=== PATIENT | male | born 1985 | race African-American/Black ===

== ENCOUNTER 2018-04-22 01:21 | Emergency (ER) | payer MEDICARE, OTHER ==
--- NOTE | 2018-04-22 01:38 | PDOC ---
History of Present Illness - General Stated Complaint: PAIN Time Seen by Provider: 04/22/18 01:37 - History of Present Illness Initial Comments: 32 year old male with PMH of substance abuse (meth, cocaine, and EtOH) presenting with "I want to get by diabetes checked". Of note, melecio was very easily agitated regardless of demeanor of the provider and when it was found out that he was never formally diagnosed with diabetes, he states " I know my body! Give me insulin!". He tended to continue this type of behavior, continuously using profanity at his providers. Denied any fevers, chills, nausea , vomiting, chest pain, weakness, or other symptoms. His FS by EMS was 95. He was noticed to be sleeping comfortably each time this provider cameby the bed to interview him. 04/22/18 03:40 Past History - Past Medical History Allergies/Adverse Reactions: Allergies Allergy/AdvReac Type Severity Reaction Status Date / Time No Known Allergies Allergy Verified 04/22/18 02:11 Home Medications: Ambulatory Orders NK [No Known Home Medication] 08/02/14 Anemia: No Asthma: No Cancer: No Cardiac Disorders: No CVA: No COPD: No CHF: No Dementia: No Diabetes: No GI Disorders: No Disorders: No HTN: Yes (off meds) Hypercholesterolemia: Yes (off meds) Kidney Stones: No Liver Disease: No Seizures: No Thyroid Disease: No - Surgical History Abdominal Surgery: No Appendectomy: No Cardiac Surgery: No Cholecystectomy: No Lung Surgery: No Neurologic Surgery: No Orthopedic Surgery: No - Reproductive History Testicular Surgery: No - Suicide/Smoking/Psychosocial Hx Smoking History: Current every day smoker Have you smoked in the past 12 months: Yes Number of Cigarettes Smoked Daily: 20 'Breaking Loose' booklet given: 02/09/15 Hx Alcohol Use: Yes (once a week) Drug/Substance Use Hx: Yes (PCP started at ge of 18, daily use for $20) Substance Use Type: Cocaine (1 gm a day) Hx Substance Use Treatment: Yes Review of Systems - Review of Systems Constitutional: No: See HPI, Chills, Diaphoresis HEENTM: No: Eye Pain, Blurred Vision, Tearing Respiratory: No: Cough, Orthopnea, Shortness of Breath Cardiac (ROS): No: Chest Pain, Edema, Irregular Heart Rate ABD/GI: No: Diarrhea, Nausea, Vomiting : No: Burning, Dysuria, Discharge Integumentary: No: Bruising, Change in Color, Erythema Neurological: No: Headache, Numbness, Paresthesia Psychiatric: No: Anxiety, Stressors, Sleep Pattern Change Endocrine: No: Excessive Sweating, Flushing Hematologic/Lymphatic: No: Anemia, Blood Clots, Easy Bleeding *Physical Exam - Physical Exam General Appearance: Yes: Nourished, Appropriately Dressed. No: Apparent Distress HEENT: positive: EOMI, ANDREW, Normal ENT Inspection, Normal Voice Neck: positive: Trachea midline, Normal Thyroid, Supple. negative: Tender, Rigid Respiratory/Chest: positive: Lungs Clear, Normal Breath Sounds. negative: Chest Tender, Respiratory Distress Cardiovascular: positive: Regular Rhythm, Regular Rate Gastrointestinal/Abdominal: positive: Normal Bowel Sounds, Flat, Soft. negative : Tender Lymphatic: negative: Adenopathy, Tenderness Musculoskeletal: positive: Normal Inspection. negative: Decreased Range of Motion Extremity: positive: Normal Capillary Refill, Normal Inspection, Normal Range of Motion. negative: Tender Integumentary: positive: Normal Color, Dry, Warm Neurologic: positive: Fully Oriented, Alert, Normal Mood/Affect, Normal Response , Motor Strength 5/5 Medical Decision Making - Medical Decision Making 32 year old male with extensive history of substance abuse presenting with a need "to check my diabetes". Fingersticks remained in the 90s x3 in EMS and our facility. Denies any symptoms that corroborate diabetes or pre-diabetes. Patient had stable vitals and was ambulatory to the bathroom multiple times. Discharged with return precautions and and follow up instructions. 04/24/18 08:08 *DC/Admit/Observation/Transfer Diagnosis at time of Disposition: Normal blood sugar - Discharge Dispostion Disposition: HOME Condition at time of disposition: Improved Decision to Admit order: No - Referrals Referrals: Tobin Davidson [Primary Care Provider] - - Patient Instructions Printed Discharge Instructions: How to Avoid a Cold or Flu Additional Instructions: You came to use to check your blood sugar because you have family history of diabetes. Both of your blood sugar readings were normal. You do not have diabetes likely. Please follow up with your primary care physician. If you have any other concerning symptoms, please return to our ED. - Post Discharge Activity
--- NOTE | 2018-04-22 01:40 | PDOC ---
Attending Attestation - Resident Resident Name: Alex Walters - ED Attending Attestation I have performed the following: I have examined & evaluated the patient, The case was reviewed & discussed with the resident, I agree w/resident's findings & plan - HPI HPI: 04/22/18 02:39 32-year-old male arrives by ambulance requesting his blood sugar be checked. - Physicial Exam PE: 04/22/18 02:40 Agree with resident's physical exam - Medical Decision Making 04/22/18 02:41 32-year-old male requesting blood sugar checked Fingerstick is 77 Patient will be discharged and has been advised to follow-up with his regular physician I
[2018-04-22 02:11] VITALS: BP 133/83; PULSE 89; TEMP 98.1; BMI 26.7
[2018-04-22] MEDS ORDERED: HEMOQUE CONTROL SOLUTION ONE (02:34)
== END 2018-04-22 04:28 | disposition home or self-care (01) ==
LOC: JER 01:21
DX: Z13.1 Encounter for screening for diabetes mellitus (principal); Z83.3 Family history of diabetes mellitus; I10 Essential (primary) hypertension; E78.00 Pure hypercholesterolemia, unspecified
CPT/HCPCS: 82962; 99281-25

== ENCOUNTER 2019-06-12 20:57 | Emergency (ER) | payer OTHER ==
[2019-06-12 21:10] VITALS: BMI 29.8
[2019-06-12] MEDS ORDERED: IBUPROFEN 600 MG TABLET (FP) PO ONE (23:34)
[2019-06-12] MEDS ORDERED: ACETAMINOPHEN 500 MG TABLET (FP) PO ONE (23:34)
[2019-06-12] MEDS ORDERED: LIDOCAINE VISCOUS 2% ORAL/TOP 20 ML UNIT-DOSE CUP PO ONE (23:52)
--- NOTE | 2019-06-12 23:52 | PDOC ---
History of Present Illness - General Chief Complaint: Respiratory Stated Complaint: FLU SYX Time Seen by Provider: 06/12/19 22:39 History Source: Patient Exam Limitations: No Limitations - History of Present Illness Initial Comments: 06/12/19 23:46 HISTORY OF PRESENT ILLNESS: 33-year-old male denies medical history presents emergency department for evaluation of cough and oral sores for the past 4 days. Patient reports has been to multiple emergency departments for evaluation and is concerned because "nobody is doing nothing for me." Patient denies fevers, chills, shortness of breath, body aches, chest pain, abdominal pain, nausea or vomiting. Patient has not had any known contact with anyone positive for covid- 19 and has had no recent travel. No recent travel or sick contacts. PAST MEDICAL HISTORY: Denies past medical history SURGICAL HISTORY: Denies ALLERGIES: No known drug allergies REVIEW OF SYSTEMS General/Constitutional: Denies fever or chills. Denies weakness, weight change. HEENT: See HPI Cardiovascular: Denies chest pain or shortness of breath. Respiratory: See HPI Gastrointestinal: Denies nausea, vomiting, diarrhea or constipation. Denies rectal bleeding. Genitourinary: Denies dysuria, frequency, or change in urination. Musculoskeletal: Denies joint or muscle swelling or pain. Denies neck or back pain. Skin and breasts: Denies rash or easy bruising. Neurologic: Denies headache, vertigo, loss of consciousness, or loss of sensation. Psychiatric: Denies depression or anxiety. Endocrine: Denies increased thirst. Denies abnormal weight change. Hematologic/Lymphatic: Denies anemia, easy bleeding, or history of blood clots. Allergic/Immunologic: Denies hives or skin allergy. Denies latex allergy. PHYSICAL EXAM General Appearance: Well-appearing, appropriately dressed. No apparent distress, no intoxication. HEENT: EOMI, PERRLA, normal ENT inspection, normal voice, TMs normal, pharynx normal. No conjunctival pallor. No photophobia, scleral icterus. Aphthous ulcers present to the right buccal surface. Neck: Supple. Trachea midline. No tenderness, rigidity, carotid bruit, stridor, lymphadenopathy, or thyromegaly. Respiratory/Chest: Lungs CTAB. No shortness of breath, chest tenderness, respiratory distress, accessory muscle use. No crackles, rales, rhonchi, stridor, wheezing, dullness Cardiovascular: RRR. S1, S2. No JVD, murmur, bradycardia, tachycardia. Integumentary: Appropriate color, dry, warm. No cyanosis, erythema, jaundice or rash Neurologic: cellar pumper II-XII intact. Fully oriented, alert. Appropriate mood/affect. Motor strength 5/5. No appreciable EOM palsy, facial droop or sensory deficit. Past History - Past Medical History Allergies/Adverse Reactions: Allergies Allergy/AdvReac Type Severity Reaction Status Date / Time No Known Allergies Allergy Verified 06/12/19 21:10 Home Medications: Ambulatory Orders NK [No Known Home Medication] 08/02/14 Anemia: No Asthma: No Cancer: No Cardiac Disorders: No CVA: No COPD: No CHF: No Dementia: No Diabetes: No GI Disorders: No Disorders: No HTN: Yes (off meds) Hypercholesterolemia: Yes (off meds) Kidney Stones: No Liver Disease: No Seizures: No Thyroid Disease: No - Surgical History Abdominal Surgery: No Appendectomy: No Cardiac Surgery: No Cholecystectomy: No Lung Surgery: No Neurologic Surgery: No Orthopedic Surgery: No - Reproductive History Testicular Surgery: No - Psycho Social/Smoking Cessation Hx Smoking History: Current every day smoker Have you smoked in the past 12 months: Yes Number of Cigarettes Smoked Daily: 20 Information on smoking cessation initiated: No 'Breaking Loose' booklet given: 02/09/15 Hx Alcohol Use: Yes (once a week) Drug/Substance Use Hx: Yes (PCP started at ge of 18, daily use for $20) Substance Use Type: Cocaine (1 gm a day) Hx Substance Use Treatment: Yes Respiratory Specific PMHX - Complaint Specific PMHX Hx TB (Tuberculosis): No *Physical Exam - Vital Signs Last Vital Signs Temp Pulse Resp BP Pulse Ox 99.1 F 100 H 18 142/74 99 06/12/19 21:07 06/12/19 21:07 06/12/19 21:07 06/12/19 21:07 06/12/19 21:07 Medical Decision Making - Medical Decision Making 06/12/19 23:53 A/P: 33-year-old male with aphthous ulcers and cough for the past 4 to 5 days Patient has been seen and evaluated multiple other facilities and is complained that no one has given him answers. Flu swab was performed at patient request patient will be discharged prior to the results of the flu swab as he is outside the window for treatment either way. Tylenol 975 mg orally now Motrin 600 mg orally now Influenza testing Viscous lidocaine orally Discharge home 06/13/19 00:50 Patient is demanding coronavirus testing and refusing to leave until he is tested. Was explained to the patient that coronavirus testing is not indicated for his condition but he may call the department of health and schedule an appointment at [facility] should he choose. Patient expressed dissatisfaction but left the hospital without incident. Discharge - Discharge Information Problems reviewed: Yes Clinical Impression/Diagnosis: Aphthous ulcer of mouth URI (upper respiratory infection) Qualifiers: URI type: unspecified viral URI Qualified Code(s): J06.9 - Acute upper resp iratory infection, unspecified Condition: Stable Disposition: HOME - Admission No - Follow up/Referral - Patient Discharge Instructions Additional Instructions: A flu test has been taken today. If results are positive you will receive a phone call. Drink plenty of fluids Take Tylenol 2-500mg tablets every 6 hours or Motrin 600mg every 6 hours for fever and pain Return to the nearest ER if short of breath, unable to swallow or feeling sicker Covid-19 Symptoms and Knowing When to Stay Home and Return to Work The following is the most recent guidance from our Infection Prevention and Control team on the symptoms and duration of Covid-19, along with when to stay home from work, when you may return, and what procedures to follow when you are ready to come back. PLease call [facility] [place] : [facility] CORONAVIRUS HOTLINE: What are the most common symptoms of Covid-19? - Muscle aches - Loss of energy and appetite - Persistent cough - Low grade fever lasting 24 hours or more, causing the person to feel feverish with chills If I have Covid-19, how long can I expect to feel sick? - Typically one week. - The majority of individuals feel better in 5 to 7 days with rest and [id number] cold and flu medications. How does illness progress in cases of Covid-19? - A few individuals progress to pneumonia (infection of the lungs) and/or pneumonitis (inflammation of the lungs). - Pneumonia/pneumonitis causes shortness of breath, worsening cough and in most cases, fever. - Individuals with the symptoms of Covid-19 who develop a worsening cough and shortness of breath must seek care quickly. If Im concerned about my symptoms or feel unwell, when must I stay home from work/ school? If you have muscle aches, cough, fatigue and low-grade fever, do not go to work/ school - Post Discharge Activity
[2019-06-13] MEDS ORDERED: ACETAMINOPHEN 325 MG TABLET (FP) ONE (00:06)
[2019-06-13] MEDS ORDERED: LIDOCAINE VISCOUS 2% ORAL/TOP 20 ML UNIT-DOSE CUP ONE (00:06)
[2019-06-13] MEDS ORDERED: IBUPROFEN 600 MG TABLET (FP) PO ONE (00:26)
[2019-06-13 02:01] VITALS: BP 115/76; PULSE 85; TEMP 97.8
== END 2019-06-13 01:25 | disposition home or self-care (01) ==
LOC: JER 20:57 → JERFT 20:57 → JER 06-13 01:25
DX: K12.0 Recurrent oral aphthae (principal); J06.9 Acute upper respiratory infection, unspecified; I10 Essential (primary) hypertension; E78.00 Pure hypercholesterolemia, unspecified
CPT/HCPCS: 87804; 99283-25

== ENCOUNTER 2020-10-16 00:35 | Emergency (ER) | payer OTHER ==
[2020-10-16 01:01] VITALS: BP 144/82; TEMP 98.9; BMI 27.1
[2020-10-16 02:21] VITALS: PULSE 79
[2020-10-16] MEDS ORDERED: ACETAMINOPHEN 325 MG TABLET (FP) PO ONE (04:00)
[2020-10-16] MEDS ORDERED: ACETAMINOPHEN 325 MG TABLET (FP) ONE (04:16)
== END 2020-10-16 05:49 | disposition home or self-care (01) ==
LOC: JER 00:35
DX: R06.02 Shortness of breath (principal)
CPT/HCPCS: 71046-TC-FY; 87804; 99284-25; C9803; U0003; U0005

== ENCOUNTER 2020-11-10 08:23 | Emergency (ER) | payer OTHER ==
[2020-11-10 08:30] VITALS: BP 134/79; PULSE 83; TEMP 97.7; BMI 29.5
[2020-11-10] MEDS ORDERED: ACETAMINOPHEN 500 MG TABLET (FP) PO ONE (09:44)
[2020-11-10] MEDS ORDERED: ACETAMINOPHEN 325 MG TABLET (FP) ONE (09:49)
[2020-11-10] MEDS ORDERED: METOCLOPRAMIDE HCL 10 MG TABLET (FP) PO ONE ×2 (10:36→11:10)
[2020-11-10] MEDS ORDERED: KETOROLAC TROMETHAMINE 30 MG/1 ML VIAL IM ONE (10:36)
[2020-11-10] MEDS ORDERED: KETOROLAC TROMETHAMINE 30 MG/1 ML VIAL ONE (11:11)
== END 2020-11-10 12:34 | disposition home or self-care (01) ==
LOC: JER 08:23
PROC: 3E0233Z Introduction of Anti-inflammatory into Muscle, Percutaneous Approach (ICD-10-PCS; principal; 2020-11-10)
DX: R51.9 Headache, unspecified (principal)
CPT/HCPCS: 70450-TC; 96372; 99284-25

== ENCOUNTER 2021-01-12 11:09 | Emergency (ER) | payer OTHER ==
[2021-01-12 11:33] VITALS: BMI 33.9
[2021-01-12] MEDS ORDERED: ACETAMINOPHEN 325 MG TABLET (FP) PO ONE (11:45)
[2021-01-12] MEDS ORDERED: ACETAMINOPHEN 325 MG TABLET (FP) ONE (11:50)
[2021-01-12 12:32] LABS: BASO % 0.6 % (0-2.0); EOS % 1.8 % (0-4.5); HEMATOCRIT 42.9 % (35.4-49); HEMOGLOBIN 14.8 GM/dL (11.7-16.9); LYMPH % 22.9 % (8-40); MCH 31.3 pg (25.7-33.7); MCHC 34.4 g/dl (32.0-35.9); MEAN CELL VOLUME 90.9 fl (80-96); MEAN PLT VOLUME 8.4 fl (7.5-11.1); MONO % 9.1 % (3.8-10.2); NEUT % 65.6 % (42.8-82.8); PLATELET COUNT 231 10^3/uL (134-434); RBC 4.72 M/mm3 (4.00-5.60); WHITE BLOOD COUNT 7.3 K/mm3 (4.0-10.0)
[2021-01-12 12:37] LABS: CHLORIDE 102 mmol/L (98-107); SODIUM 136 mmol/L (136-145)
[2021-01-12 12:39] LABS: BLOOD UREA NITROGEN 9.9 mg/dL (7-18)
[2021-01-12 12:40] LABS: ALBUMIN 3.5 g/dl (3.4-5.0); ANION GAP 3 MMOL/L (8-16); CO2 31 mmol/L (21-32); GLUCOSE,RANDOM 119 mg/dL (74-106)
[2021-01-12 12:42] LABS: CREATININE 0.9 mg/dL (0.55-1.3)
[2021-01-12 12:44] LABS: BILIRUBIN,TOTAL 0.6 mg/dL (0.2-1); TOT PROT 7.1 g/dl (6.4-8.2)
[2021-01-12 12:45] LABS: ALK PHOS 69 U/L (45-117)
[2021-01-12 13:25] LABS: SGOT/AST 34 U/L (15-37); SGPT/ALT 64 U/L (13-61)
[2021-01-12 14:26] VITALS: TEMP 98.3
[2021-01-12 15:25] VITALS: BP 116/76; PULSE 80
== END 2021-01-12 17:04 | disposition home or self-care (01) ==
LOC: JER 11:09
DX: R43.0 Anosmia (principal); W19.XXXA Unspecified fall, initial encounter; Y92.9 Unspecified place or not applicable
CPT/HCPCS: 36415; 71046-TC-FY; 80053; 82550; 82553; 84484; 85025; 93005; 93010; 99284-25; C9803; U0003; U0005

== ENCOUNTER 2021-06-05 09:30 | Emergency (ER) | payer OTHER ==
[2021-06-05 09:42] VITALS: TEMP 98.2; BMI 29.5
[2021-06-05] MEDS ORDERED: ACETAMINOPHEN 1000 MG/100 ML BAG IVPB ONE (10:31)
[2021-06-05] MEDS ORDERED: ALBUTEROL SO4 2.5/IPRATROPIUM 0.5 INH SOL 3 ML VIAL.NEB. NEB ONE ×2 (10:31→10:45)
[2021-06-05] MEDS ORDERED: ACETAMINOPHEN INJECTION 100 ML IVPB ONE (11:27)
[2021-06-05 12:12] LABS: PH,URINE 7.5 (5.0-8.0); URINE APPEARANCE CLEAR; URINE BILIRUBIN NEGATIVE (NEGATIVE); URINE COLOR YELLOW; URINE GLUCOSE (UA) NEGATIVE (NEGATIVE); URINE KETONE TRACE (NEGATIVE); URINE LEUK ESTERASE NEGATIVE (NEGATIVE); URINE NITRITE NEGATIVE (NEGATIVE); URINE PROTEIN NEGATIVE (NEGATIVE)
[2021-06-05 12:13] LABS: BASO % 0.3 % (0-2.0); EOS % 1.2 % (0-4.5); HEMATOCRIT 42.3 % (35.4-49); HEMOGLOBIN 14.1 GM/dL (11.7-16.9); LYMPH % 33.6 % (8-40); MCH 30.9 pg (25.7-33.7); MCHC 33.4 g/dl (32.0-35.9); MEAN CELL VOLUME 92.6 fl (80-96); MEAN PLT VOLUME 8.5 fl (7.5-11.1); MONO % 10.4 % (3.8-10.2); NEUT % 54.5 % (42.8-82.8); PLATELET COUNT 215 10^3/uL (134-434); RBC 4.56 M/mm3 (4.00-5.60); RDW 14.4 % (11.9-15.9); WHITE BLOOD COUNT 5.5 K/mm3 (4.0-10.0)
[2021-06-05 12:29] LABS: ALBUMIN 3.7 g/dl (3.4-5.0); BLOOD UREA NITROGEN 7.4 mg/dL (7-18); CALCIUM 8.7 mg/dL (8.5-10.1)
[2021-06-05 12:34] LABS: BILIRUBIN,TOTAL 0.4 mg/dL (0.2-1); TOT PROT 6.9 g/dl (6.4-8.2)
[2021-06-05 12:49] LABS: INR 1.02 (0.83-1.09); PROTHROMBIN TIME (PATIENT) 11.7 SEC (9.7-13.0)
[2021-06-05 13:24] LABS: HIV INTERPRETATION NEGATIVE (NEGATIVE)
[2021-06-05 13:43] LABS: METHADONE, UR NEGATIVE (NEGATIVE); URINE AMPHETAMINES NEGATIVE (NEGATIVE); URINE BARBITURATES NEGATIVE (NEGATIVE)
[2021-06-05 13:44] LABS: COCAINE, UR NEGATIVE (NEGATIVE); OPIATES, URI NEGATIVE (NEGATIVE)
[2021-06-05 13:45] LABS: URINE BENZODIAZEPINES NEGATIVE (NEGATIVE)
[2021-06-05 13:57] LABS: PHENCYCLIDINE,URINE POSITIVE (NEGATIVE)
[2021-06-05] MEDS ORDERED: KETOROLAC TROMETHAMINE 15 MG/ML VIAL IVPUSH ONE (16:42)
[2021-06-05] MEDS ORDERED: KETOROLAC TROMETHAMINE 15 MG/ML VIAL ONE (16:53)
[2021-06-05] MEDS ORDERED: KETOROLAC TROMETHAMINE 60 MG/2 ML VIAL IM ONE (16:56)
[2021-06-05 17:16] VITALS: BP 130/78; PULSE 78
[2021-06-06 13:07] LABS: SARS-CoV-2 NAA Not Detected (Not Detected)
== END 2021-06-05 17:16 | disposition home or self-care (01) ==
LOC: JER 09:30
PROC: 3E0333Z Introduction of Anti-inflammatory into Peripheral Vein, Percutaneous Approach (ICD-10-PCS; principal; 2021-06-05)
PROC: 3E0F7GC Introduction of Other Therapeutic Substance into Respiratory Tract, Via Natural or Artificial Opening (ICD-10-PCS; 2021-06-05)
PROC: 3E0233Z Introduction of Anti-inflammatory into Muscle, Percutaneous Approach (ICD-10-PCS; 2021-06-05)
DX: R07.9 Chest pain, unspecified (principal)
CPT/HCPCS: 36415; 71046-TC-FY; 71275-TC; 80053; 80307; 81003; 84484; 85025; 85610; 87389; 87491; 87591; 87804; 93005; 93010; 96372; 96374; 96375; 99284-25; C9803; Q9967; U0003; U0005

== ENCOUNTER 2021-06-09 02:15 | Emergency (ER) | payer OTHER ==
[2021-06-09 02:36] VITALS: BP 123/82; PULSE 82; TEMP 97.3; BMI 35.6
== END 2021-06-09 02:54 | disposition left against medical advice (07) ==
LOC: JER 02:15
DX: R53.1 Weakness (principal)
CPT/HCPCS: 93005; 93010; 99281-25

== ENCOUNTER 2021-10-05 20:02 | Emergency (ER) | payer OTHER ==
[2021-10-05 20:18] VITALS: BP 135/89; PULSE 75; TEMP 98.8; BMI 30.8
[2021-10-05] MEDS ORDERED: ACETAMINOPHEN 1000 MG/100 ML BAG IVPB ONE (20:53)
[2021-10-05] MEDS ORDERED: ACETAMINOPHEN INJECTION 100 ML IVPB ONE (21:13)
[2021-10-06] MEDS ORDERED: KETOROLAC TROMETHAMINE 30 MG/1 ML VIAL IVPUSH ONE (00:16)
[2021-10-06] MEDS ORDERED: KETOROLAC TROMETHAMINE 30 MG/1 ML VIAL ONE (00:42)
== END 2021-10-06 01:18 | disposition home or self-care (01) ==
LOC: JER 20:02
PROC: 3E033NZ Introduction of Analgesics, Hypnotics, Sedatives into Peripheral Vein, Percutaneous Approach (ICD-10-PCS; principal; 2021-10-05)
PROC: 3E033NZ Introduction of Analgesics, Hypnotics, Sedatives into Peripheral Vein, Percutaneous Approach (ICD-10-PCS; 2021-10-06)
DX: S69.92XA Unspecified injury of left wrist, hand and finger(s), initial encounter (principal)
CPT/HCPCS: 71045-TC-FY; 73090-TC-LT-FY; 73110-TC-LT-FY; 73590-TC-LT-FY; 73610-TC-LT-FY; 73630-TC-LT; 96374; 96375; 99284-25

== ENCOUNTER 2021-10-19 04:44 | Emergency (ER) | payer OTHER ==
[2021-10-19] MEDS ORDERED: IBUPROFEN 400 MG TABLET (FP) PO ONE ×2 (04:58→05:13)
[2021-10-19] MEDS ORDERED: methylPREDNISolone NA SUCC 125 MG/2 ML VIAL IVPUSH ONE (05:03)
[2021-10-19] MEDS ORDERED: DEXAMETHASONE 4 MG TABLET (FP) PO ONE (05:04)
[2021-10-19 05:08] VITALS: BP 143/85; PULSE 95; TEMP 97.8; BMI 32.5
[2021-10-19] MEDS ORDERED: DEXAMETHASONE 4 MG TABLET (FP) ONE (05:13)
[2021-10-19] MEDS: ALBUTEROL SO4 2.5/IPRATROPIUM 0.5 INH SOL 3 ML VIAL.NEB. NEB SCH ×4 (05:30→06:15)
[2021-10-19] MEDS ORDERED: BACITRACIN 0.9 GM PACKET ONE (06:54)
[2021-10-19] MEDS ORDERED: DIPHTH,PERTUSS(ACELL),TET 0.5 ML DISP.SYRIN IM ONE ×2 (07:15→07:22)
== END 2021-10-19 07:43 | disposition home or self-care (01) ==
LOC: JER 04:44
PROC: 3E0234Z Introduction of Serum, Toxoid and Vaccine into Muscle, Percutaneous Approach (ICD-10-PCS; principal; 2021-10-19)
PROC: 3E0F7GC Introduction of Other Therapeutic Substance into Respiratory Tract, Via Natural or Artificial Opening (ICD-10-PCS; 2021-10-19)
DX: R06.02 Shortness of breath (principal); W19.XXXA Unspecified fall, initial encounter; Y92.9 Unspecified place or not applicable
CPT/HCPCS: 70450-TC; 71250-TC; 72125-TC; 73090-TC-LT-FY; 73110-TC-LT-FY; 73130-TC-LT-FY; 74176-TC; 90471; 90715; 93005; 93010; 94640; 99285-25